=== PATIENT | female | born 1990 | race Caucasian/White ===

== ENCOUNTER 2019-10-08 08:13 | Emergency (ER) | payer BC, OTHER ==
[2019-10-08] MEDS ORDERED: Acetaminophen 325 MG Tab PO ONE (08:38)
--- NOTE | 2019-10-08 08:41 | EDM.PDOC ---
ED [facility] GENERAL MEDICAL PROBLEM - General Chief Complaint: Abdominal Pain Stated Complaint: LOWER ABDOMINAL PAIN Time Seen by Provider: 10/08/19 08:39 Source of Information: Reports: Patient, Old Records History Limitations: Reports: No Limitations - History of Present Illness INITIAL COMMENTS - FREE TEXT/NARRATIVE: Patient is a 29-year-old female presenting with a chief complaint of lower pelvic pain. Patient has history of ovarian cysts and irregular menstrual periods. Patient states that the pain started this morning and is located in the lower pelvis and is not localized to 1 side to the other. Pain is fluctuated in intensity since onset. Patient reports the nature of the pain is similar to period cramps. Patient took Motrin without any relief. Patient denies any associated fevers, chills, nausea, vomiting, dysuria, hematuria, vaginal bleeding, vaginal discharge. Patient's last menstrual period was at the end of July. Pmhx: Per HPI Pshx: Appendectomy Family Hx: noncontributory Smoking history? no Etoh use? none Drug use? none In addition to that documented in the HPI above, the additional ROS was obtained : Constitutional: Denies fevers or chills Eyes: Denies vision changes ENMT: Denies sore throat CV: Denies chest pain Resp: Denies SOB GI: Denies vomiting or diarrhea : Denies painful urination MSK: Denies recent trauma Skin: Denies new rashes Neuro: Denies new numbness or tingling or weakness Endocrine: Denies unexpected weight loss Heme: Denies bleeding disorders I have reviewed the triage vital signs Const: Well nourished, well developed, appears stated age Eyes: PERRL, no conjunctival injection HENT: NCAT, Neck supple without meningismus CV: RRR, Warm, well-perfused extremities RESP: Unlabored respiratory effort GI: Tenderness over the lower pelvis not focal. No guarding, soft, non-tender, non-distended, no masses MSK: No gross deformities appreciated Skin: Warm, dry. No rashes Neuro: Alert, personal lines advisor II-XII grossly intact. Sensation and motor function of extremities grossly intact. Psych: Appropriate mood and affect Assessment and plan: Patient is 29-year-old female presenting with lower pelvic pain. Patient's vital signs within normal limits on arrival to the ER. Patient's ER course was uncomplicated. Patient's pain control with Tylenol. Labs revealed elevated white blood cell count but no other significant abnormalities. Although ovarian torsion is low likelihood, an ultrasound was performed to examine the ovaries to rule out. Ultrasound did not find any acute abnormalities. Other differentials included urinary tract infection and . Urine tests are unremarkable. 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 The patient was given return precautions. All questions were addressed and answered. Patient agrees with plan. Lower Abdomen Pain Score (Numeric/FACES): 8 - Related Data Allergies Allergy/AdvReac Type Severity Reaction Status Date / Time No Known Allergies Allergy Verified 09/01/15 13:48 [facility] Home Meds: Home Meds No122/Iron/Folic Acid [ Multi Tablet] 1 each PO DAILY 09/01/15 [History] Acetaminophen/oxyCODONE [Percocet 325-5 MG] 2 tab PO Q4H PRN tablet 05/22/17 [ Rx] Docusate Sodium [Colace] 100 mg PO Q12H PRN cap 05/22/17 [Rx] Ibuprofen [IJD: Ibuprofen] 600 mg PO Q4H PRN #30 tablet 05/22/17 [Rx] Past Medical History - Past Health History Medical/Surgical History: Denies Medical/Surgical History Other HEENT History: wears glasses 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) Gastrointestinal History: Reports: Other (See Below) 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 HAND History: Reports: Dysfunctional Uterine Bleeding - Past Surgical History GI Surgical History: Reports: Appendectomy Social & Family History - Family History Family Medical History: Noncontributory ED ROS GENERAL - Review of Systems Review Of Systems: See Below ED EXAM, RENAL/ - Physical Exam Exam: See Below Course - Vital Signs Last Recorded V/S: Last Vital Signs Temp 36.7 C 10/08/19 08:30 Pulse 77 10/08/19 10:06 Resp 16 10/08/19 10:06 BP 95/60 10/08/19 10:06 Pulse Ox 99 10/08/19 10:06 - Orders/Labs/Meds Labs: Laboratory Tests 10/08/19 10/08/19 10/08/19 Range/Units 08:45 08:45 08:45 WBC 15.01 H (4.0-11.0) K/uL RBC 4.60 (4.30-5.90) M/uL Hgb 14.1 (12.0-16.0) g/dL Hct 41.6 (36.0-46.0) % MCV 90.4 (80.0-98.0) fL MCH 30.7 (27.0-32.0) pg MCHC 33.9 (31.0-37.0) g/dL RDW Std Deviation 39.2 (28.0-62.0) fl RDW Coeff of Diya 12 (11.0-15.0) % Plt Count 201 (150-400) K/uL MPV 10.00 (7.40-12.00) fL Neut % (Auto) 82.5 H (48.0-80.0) % Lymph % (Auto) 10.7 L (16.0-40.0) % Slope % (Auto) 5.7 (0.0-15.0) % Eos % (Auto) 0.8 (0.0-7.0) % Baso % (Auto) 0.3 (0.0-1.5) % Neut # (Auto) 12.4 H (1.4-5.7) K/uL Lymph # (Auto) 1.6 (0.6-2.4) K/uL Slope # (Auto) 0.9 H (0.0-0.8) K/uL Eos # (Auto) 0.1 (0.0-0.7) K/uL Baso # (Auto) 0.0 (0.0-0.1) K/uL Nucleated RBC % 0.0 /100WBC Nucleated RBCs # 0 K/uL Sodium (136-145) mmol/L Potassium (3.5-5.1) mmol/L Chloride (98-107) mmol/L Carbon Dioxide (21.0-32.0) mmol/L BUN (7.0-18.0) mg/dL Creatinine (0.6-1.0) mg/dL Est Cr Clr Drug Dosing Estimated GFR (MDRD) ml/min Glucose (74-106) mg/dL Calcium (8.5-10.1) mg/dL Urine Color YELLOW Urine Appearance CLEAR Urine pH 6.0 (5.0-8.0) Ur Specific [place] >= 1.030 (1.001-1.035) Urine Protein NEGATIVE (NEGATIVE) mg/dL Urine Glucose (UA) NEGATIVE (NEGATIVE) mg/dL Urine Ketones NEGATIVE (NEGATIVE) mg/dL Urine Occult Blood NEGATIVE (NEGATIVE) Urine Nitrite NEGATIVE (NEGATIVE) Urine Bilirubin NEGATIVE (NEGATIVE) Urine Urobilinogen 0.2 (<2.0) EU/dL Ur Leukocyte Esterase NEGATIVE (NEGATIVE) Urine HCG, Qual NEGATIVE (NEGATIVE) 10/08/19 Range/Units 08:45 WBC (4.0-11.0) K/uL RBC (4.30-5.90) M/uL Hgb (12.0-16.0) g/dL Hct (36.0-46.0) % MCV (80.0-98.0) fL MCH (27.0-32.0) pg MCHC (31.0-37.0) g/dL RDW Std Deviation (28.0-62.0) fl RDW Coeff of Diya (11.0-15.0) % Plt Count (150-400) K/uL MPV (7.40-12.00) fL Neut % (Auto) (48.0-80.0) % Lymph % (Auto) (16.0-40.0) % Slope % (Auto) (0.0-15.0) % Eos % (Auto) (0.0-7.0) % Baso % (Auto) (0.0-1.5) % Neut # (Auto) (1.4-5.7) K/uL Lymph # (Auto) (0.6-2.4) K/uL Slope # (Auto) (0.0-0.8) K/uL Eos # (Auto) (0.0-0.7) K/uL Baso # (Auto) (0.0-0.1) K/uL Nucleated RBC % /100WBC Nucleated RBCs # K/uL Sodium 141 (136-145) mmol/L Potassium 3.8 (3.5-5.1) mmol/L Chloride 104 (98-107) mmol/L Carbon Dioxide 28.8 (21.0-32.0) mmol/L BUN 13 (7.0-18.0) mg/dL Creatinine 0.8 (0.6-1.0) mg/dL Est Cr Clr Drug Dosing TNP Estimated GFR (MDRD) > 60.0 ml/min Glucose 92 (74-106) mg/dL Calcium 8.4 L (8.5-10.1) mg/dL Urine Color Urine Appearance Urine pH (5.0-8.0) Ur Specific [place] (1.001-1.035) Urine Protein (NEGATIVE) mg/dL Urine Glucose (UA) (NEGATIVE) mg/dL Urine Ketones (NEGATIVE) mg/dL Urine Occult Blood (NEGATIVE) Urine Nitrite (NEGATIVE) Urine Bilirubin (NEGATIVE) Urine Urobilinogen (<2.0) EU/dL Ur Leukocyte Esterase (NEGATIVE) Urine HCG, Qual (NEGATIVE) Meds: Medications Discontinued Medications Generic Name Dose Route Start Last Admin Trade Name Freq PRN Reason Stop Dose Admin Acetaminophen 650 mg 10/08/19 08:38 10/08/19 08:48 Tylenol PO 10/08/19 08:39 650 mg NOW ONE Administration Departure - Departure Time of Disposition: 10:10 Disposition: Home, Self-Care 01 Clinical Impression: Pelvic pain - Discharge Information Instructions: Pelvic Pain, Female Referrals: PCP,None [Primary Care Provider] - Forms: ED Department Discharge Additional Instructions: The following information is given to patients seen in the emergency department who are being discharged to home. This information is to outline your options for follow-up care. We provide all patients seen in our emergency department with a follow-up referral. The need for follow-up, as well as the timing and circumstances, are variable depending upon the specifics of your emergency department visit. If you don't have a primary care physician on staff, we will provide you with a referral. We always advise you to contact your personal physician following an emergency department visit to inform them of the circumstance of the visit and for follow-up with them and/or the need for any referrals to a consulting specialist. The emergency department will also refer you to a specialist when appropriate. This referral assures that you have the opportunity for follow-up care with a specialist. All of these measure are taken in an effort to provide you with optimal care, which includes your follow-up. Under all circumstances we always encourage you to contact your private physician who remains a resource for coordinating your care. When calling for follow-up care, please make the office aware that this follow-up is from your recent emergency room visit. If for any reason you are refused follow-up, please contact the [facility] Emergency Department at and asked to speak to the emergency department charge nurse. Use Tylenol and Motrin today for pain control. If pain gets significantly worse or you start having vomiting, return to the ER. Sepsis Event Note - Evaluation Sepsis Screening Result: No Definite Risk - Focused Exam Vital Signs: Vital Signs Temp Pulse Resp BP Pulse Ox 10/08/19 10:06 77 16 95/60 99 10/08/19 08:30 36.7 C 72 14 103/66 98 Date Exam was Performed: 10/08/19 Time Exam was Performed: 10:10
[2019-10-08 09:12] LABS: BLOOD UREA NITROGEN,BUN 13 mg/dL (7.0-18.0); CARBON DIOXIDE,CO2 28.8 mmol/L (21.0-32.0); CHLORIDE,CL 104 mmol/L (98-107); GLUCOSE RANDOM 92 mg/dL (74-106); POTASSIUM,K 3.8 mmol/L (3.5-5.1); SODIUM,NA 141 mmol/L (136-145)
--- NOTE | 2019-10-08 10:02 | US ---
Pelvic ultrasound: Multiple real-time images were obtained transabdominally and transvaginally. Uterus is anteverted. No myometrial abnormality is seen. Endometrial thickness is normal at 6 mm. Follicles are seen within both ovaries. No larger cyst or solid abnormality is seen within either ovary. No free fluid is seen. Measurements: Uterus: Length 6.7 cm, AP height 4.2 cm, transverse with 5.0 cm Right ovary: 3.2 x 3.1 x 2.2 cm Left ovary: 3.9 x 3.5 x 2.5 cm Impression: 1. No abnormality is identified on pelvic ultrasound study. Diagnostic code #1 This report was dictated in MDT
[2019-10-08 10:06] VITALS: BP 95/60; PULSE 77
== END 2019-10-08 10:15 | disposition home or self-care (01) ==
LOC: MW.ED 08:13
DX: R10.2 Pelvic and perineal pain (principal); Z90.49 Acquired absence of other specified parts of digestive tract
CPT/HCPCS: 36415; 76856; 80048; 81003; 81025; 85025; 99284; A9270; 99283

== ENCOUNTER 2021-02-08 09:50 | Inpatient (IN) | payer OTHER ==
[2021-02-08] MEDS ORDERED: NIFEdipine 30 MG Tab.ER PO ONE (11:00)
[2021-02-08] MEDS ORDERED: NIFEdipine 10 MG Cap ONE (11:12)
[2021-02-08] MEDS ORDERED: Lactated Ringers 1,000 ML IV SCH ×2 (11:15→16:00)
[2021-02-08] MEDS ORDERED: Butorphanol 1 MG/ML SDV IM ONE (15:24)
[2021-02-08] MEDS ORDERED: Sodium Chloride 0.9% 2.5 ML Syringe FLUSH PRN (15:47)
[2021-02-08] MEDS ORDERED: Sodium Chloride 0.9% 10 ML SDV IV PRN (15:47)
[2021-02-08] MEDS ORDERED: Sodium Chloride 0.9% 10 ML Syringe FLUSH PRN (15:47)
[2021-02-08] MEDS ORDERED: ceFAZolin 2 GM in Premix Bag 1 BAG IV ONE (15:47)
--- NOTE | 2021-02-08 15:58 | PCM.LDHP ---
L&D History of Present Illness - General Date of Service: 02/08/21 Admit Problem/Dx: Patient Status Order with Admit Dx/Problem 02/08/21 13:51 Patient Status [ADT] Routine 02/08/21 15:47 Patient Status [ADT] Routine Admission Diagnosis/Problem Admission Diagnosis/Problem 02/08/21 15:53 presenting to L&D with complaints of painful, regular uterine contractions approximately 4-7 minutes apart. She is 35 3/7 weeks today (BRENNA: 03/12/21 by early ultrasound). After several hours of observation, she progressed to 4-5cm/70%/-2. O+, Rubella immune, GBS unknown. Her last delivery was a haydee arean due to breech presentation. MFM predicted chance of success: 91.5%; patient has elected to have repeat delivery. Uneventful course thus far. Source of Information: Patient History Limitations: Reports: No Limitations - Related Data Allergies/Adverse Reactions: Allergies Allergy/AdvReac Type Severity Reaction Status Date / Time No Known Allergies Allergy Verified 02/08/21 10:09 Home Medications: Home Meds No122/Iron/Folic Acid [ Multi Tablet] 1 each PO DAILY 09/01/15 [History] Past Medical History - Past Health History Medical/Surgical History: Denies Medical/Surgical History Other HEENT History: wears glasses Cardiovascular History: Reports: None Respiratory History: Reports: Asthma, Other (See Below) Other Respiratory History: sports induced asthma, do not use inhaler Gastrointestinal History: Reports: Other (See Below) Genitourinary History: Reports: None 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 OB/BYN History: hx of cesareran section, 2017 Musculoskeletal History: Reports: None Neurological History: Reports: None Psychiatric History: Reports: None Endocrine/Metabolic History: Reports: None Hematologic History: Reports: None Immunologic History: Reports: None Oncologic (Cancer) History: Reports: None Dermatologic History: Reports: None - Infectious Disease History Infectious Disease History: Reports: None - Past Surgical History Head Surgeries/Procedures: Reports: None GI Surgical History: Reports: Appendectomy Female Surgical History: Reports: None Social & Family History - Family History Family Medical History: No Pertinent Family History - Tobacco Use Tobacco Use Status *Q: Never Tobacco User Second Hand Smoke Exposure: No - Caffeine Use Caffeine Use: Reports: Coffee Other Caffeine Use: 1 cup of coffee every 3 days - Recreational Drug Use Recreational Drug Use: No H&P Review of Systems - Review of Systems: Review Of Systems: See Below General: Reports: No Symptoms HEENT: Reports: No Symptoms Pulmonary: Reports: No Symptoms Cardiovascular: Reports: No Symptoms Gastrointestinal: Reports: No Symptoms Genitourinary: Reports: No Symptoms Musculoskeletal: Reports: No Symptoms Skin: Reports: No Symptoms Psychiatric: Reports: No Symptoms Neurological: Reports: No Symptoms Hematologic/Lymphatic: Reports: No Symptoms Immunologic: Reports: No Symptoms L&D Exam - Exam Exam: See Below - Vital Signs Vital Signs: Last Vital Signs Temp Pulse Resp BP 108/71 02/08/21 11:15 Pulse Ox Weight: 155 lb - OB Specific Contraction Intensity: Moderate Movement: Active Heart Tones: Present Heart Rate (FHR) Variability: Moderate (6-25 bpm) Presentation: Vertex - Holm Score Holm Score Cervix Position: Midposition Holm Score Consistency: Soft Holm Score Effacement: 51-70% Holm Score Dilation: 3-4 cm Holm Score Infant's Station: -2 Holm Score Total: 8 - Exam General: Alert, Oriented, Cooperative Lungs: Normal Respiratory Effort Cardiovascular: Regular Rate, Regular Rhythm GI/Abdominal Exam: Soft, Non-Tender Rectal Exam: Deferred Genitourinary: Deferred Back Exam: Normal Inspection, Full Range of Motion Extremities: Normal Inspection, Normal Range of Motion, Non-Tender, Normal Capillary Refill Skin: Warm, Dry, Intact Neurological: Strength Equal Bilateral, Normal Speech, Normal Tone, Sensation Intact Psychiatric: Alert, Normal Affect, Normal Mood - Patient Data Lab Results Last 24 hrs: Laboratory Results - last 24 hr 02/08/21 02/08/21 Range/Units 10:37 10:40 Urine Color YELLOW Urine Appearance CLEAR Urine pH 8.0 (5.0-8.0) Ur Specific [place] 1.015 (1.001-1.035) Urine Protein NEGATIVE (NEGATIVE) mg/dL Urine Glucose (UA) NEGATIVE (NEGATIVE) mg/dL Urine Ketones NEGATIVE (NEGATIVE) mg/dL Urine Occult Blood NEGATIVE (NEGATIVE) Urine Nitrite NEGATIVE (NEGATIVE) Urine Bilirubin NEGATIVE (NEGATIVE) Urine Urobilinogen 0.2 (<2.0) EU/dL Ur Leukocyte Esterase TRACE H (NEGATIVE) Awa species DNA POSITIVE H (NEGATIVE) Gardnerella DNA Probe NEGATIVE (NEGATIVE) Trichomonas DNA Probe NEGATIVE (NEGATIVE) - Problem List (1) Supervision of normal IUP (intrauterine ) in multigravida SNOMED Code(s): 785468544, 146329621, 446530913 ICD Code: Z34.80 - ENCOUNTER FOR SUPRVSN OF NORMAL , UNSP TRIMESTER Status: Acute Priority: High Current Visit: Yes Qualifiers: Trimester: third trimester Qualified Code(s): Z34.83 - Encounter for supervision of other normal , third trimester (2) labor in third trimester SNOMED Code(s): 1191383 ICD Code: O60.03 - LABOR WITHOUT DELIVERY, THIRD TRIMESTER Status: Acute Priority: High Current Visit: Yes Problem List Initiated/Reviewed/Updated: Yes Orders Last 24hrs: Active Orders 24 hr Category Date Time Status Patient Status [ADT] Routine ADT 02/08/21 13:51 Active Patient Status [ADT] Routine ADT 02/08/21 15:47 Active Non Stress Test [RC] PER UNIT ROUTINE Care 02/08/21 10:15 Active Notify Provider Vital Signs [RC] PRN Care 02/08/21 15:49 Active Procedure Site Prep Instruct [RC] ASDIRECTED Care 02/08/21 15:47 Active Up ad Humera [RC] ASDIRECTED Care 02/08/21 10:15 Active Up ad Humera [RC] ASDIRECTED Care 02/08/21 15:47 Active Vaginal Exam [RC] Click to Edit Care 02/08/21 10:15 Active Verify Patient Consent Obtain [RC] ASDIRECTED Care 02/08/21 15:47 Active Vital Signs [RC] PER UNIT ROUTINE Care 02/08/21 10:15 Active Vital Signs [RC] PER UNIT ROUTINE Care 02/08/21 15:47 Active CBC W/O DIFF,HEMOGRAM [HEME] Routine Lab 02/08/21 15:47 Ordered GROUP B STREP BY PCR [MOLEC] Routine Lab 02/08/21 10:38 Received RPR (SYPHILIS SERO) W/ RFLX [REF] Routine Lab 02/08/21 15:47 Ordered TYPE AND SCREEN [BBK] Routine Lab 02/08/21 15:47 Ordered Butorphanol [Stadol] Med 02/08/21 15:24 Once 1 mg IM ONETIME ONE Lactated Ringers [Ringers, Lactated] 1,000 ml Med 02/08/21 11:15 Active IV ASDIRECTED Lactated Ringers [Ringers, Lactated] 1,000 ml Med 02/08/21 16:00 Ordered IV BOLUS Oxytocin/0.9 % Sodium Chloride [Oxytocin 30 Unit/500 ML Med 02/08/21 16:00 Ordered -NS] 30 unit in 500 ml IV TITRATE Sodium Chloride 0.9% [Normal Saline] Med 02/08/21 15:47 Ordered 10 ml IV ASDIRECTED PRN Sodium Chloride 0.9% [Saline Flush] Med 02/08/21 15:47 Ordered 10 ml FLUSH ASDIRECTED PRN Sodium Chloride 0.9% [Saline Flush] Med 02/08/21 15:47 Ordered 2.5 ml FLUSH ASDIRECTED PRN ceFAZolin [Ancef 2 GM/50 ML] 2 gm Med 02/08/21 15:47 Ordered Premix Bag 1 bag IV ONETIME Peripheral IV Insertion Adult [OM.PC] Routine Oth 02/08/21 15:47 Ordered Schedule Procedure [COMM] Per Unit Routine Oth 02/08/21 15:47 Ordered Resuscitation Status Routine Resus Stat 02/08/21 10:15 Ordered Medication Orders Butorphanol Tartrate (Butorphanol 1 Mg/Ml Sdv) 1 mg IM ONETIME ONE Stop: 02/08/21 15:25 Lactated Ringer's (Ringers, Lactated) 1,000 mls @ 999 mls/hr IV ASDIRECTED LIAT Last Admin: 02/08/21 11:00 Dose: 999 mls/hr Documented by: [id number] Lactated Ringer's (Ringers, Lactated) 1,000 mls @ 500 mls/hr IV BOLUS [facility] Oxytocin/Sodium Chloride (Oxytocin 30 Unit/500 Ml-Ns) 30 unit in 500 mls @ 250 mls/hr IV TITRATE LIAT Cefazolin Sodium/Dextrose 2 gm (/ Premix) 50 mls @ 100 mls/hr IV ONETIME ONE Stop: 02/08/21 16:16 Sodium Chloride (Sodium Chloride 0.9% 10 Ml Syringe) 10 ml FLUSH ASDIRECTED PRN PRN Reason: Keep Vein Open Sodium Chloride (Sodium Chloride 0.9% 2.5 Ml Syringe) 2.5 ml FLUSH ASDIRECTED PRN PRN Reason: Keep Vein Open Sodium Chloride (Sodium Chloride 0.9% 10 Ml Sdv) 10 ml IV ASDIRECTED PRN PRN Reason: IV Use Assessment/Plan Comment:: Admit A: presenting to L&D with complaints of painful, regular uterine contractions approximately 4-7 minutes apart. She is 35 3/7 weeks today (BRENNA: 03/12/21 by early ultrasound). After several hours of observation, she progressed to 4-5cm/70%/-2. O+, Rubella immune, GBS unknown. Her last delivery was a due to breech presentation. MFM predicted chance of success: 91.5%; patient has elected to have repeat delivery. Uneventful course thus far. P: Repeat delivery by Dr. Bee.
[2021-02-08] MEDS ORDERED: Morphine PF 10 MG/10 ML SDV ONE (16:00)
[2021-02-08] MEDS ORDERED: Oxytocin/0.9 % Sodium Chloride 30 UNIT/500 ML BAG IV SCH (16:00)
[2021-02-08] MEDS ORDERED: fentaNYL 100 MCG/2 ML SDV ONE (16:00)
[2021-02-08] MEDS ORDERED: Octyl 2-Cyanoacrylate 1 Tube ONE (16:25)
--- NOTE | 2021-02-08 16:26 | PCM.PREANE ---
Preanesthetic Assessment - Anesthesia/Transfusion/Family Hx Anesthesia History: Prior Anesthesia Without Reaction Family History of Anesthesia Reaction: No Transfusion History: No Prior Transfusion(s) Intubation History: Unknown - Review of Systems General: No Symptoms Pulmonary: No Symptoms Cardiovascular: No Symptoms Gastrointestinal: No Symptoms Neurological: No Symptoms Other: Reports: None - Physical Assessment NPO Status Date: 02/08/21 NPO Status Time: 06:00 Vital Signs: Last Vital Signs Temp Pulse Resp BP 108/71 02/08/21 11:15 Pulse Ox Height: 5 ft 5 in Weight: 155 lb ASA Class: 2 Mental Status: Alert & Oriented x3 Airway Class: Mallampati = 3 Dentition: Reports: Normal Dentition ROM/Head Extension: Full Lungs: Clear to Auscultation, Normal Respiratory Effort Cardiovascular: Regular Rate, Regular Rhythm - Lab Values: Laboratory Last Values Urine Color YELLOW 02/08/21 10:40 Urine Appearance CLEAR 02/08/21 10:40 Urine pH 8.0 (5.0-8.0) 02/08/21 10:40 Ur Specific [place] 1.015 (1.001-1.035) 02/08/21 10:40 Urine Protein NEGATIVE mg/dL (NEGATIVE) 02/08/21 10:40 Urine Glucose (UA) NEGATIVE mg/dL (NEGATIVE) 02/08/21 10:40 Urine Ketones NEGATIVE mg/dL (NEGATIVE) 02/08/21 10:40 Urine Occult Blood NEGATIVE (NEGATIVE) 02/08/21 10:40 Urine Nitrite NEGATIVE (NEGATIVE) 02/08/21 10:40 Urine Bilirubin NEGATIVE (NEGATIVE) 02/08/21 10:40 Urine Urobilinogen 0.2 EU/dL (<2.0) 02/08/21 10:40 Ur Leukocyte Esterase TRACE (NEGATIVE) H 02/08/21 10:40 Awa species DNA POSITIVE (NEGATIVE) H 02/08/21 10:37 Gardnerella DNA Probe NEGATIVE (NEGATIVE) 02/08/21 10:37 Trichomonas DNA Probe NEGATIVE (NEGATIVE) 02/08/21 10:37 - Allergies Allergies/Adverse Reactions: Allergies Allergy/AdvReac Type Severity Reaction Status Date / Time No Known Allergies Allergy Verified 02/08/21 10:09 - Blood Blood Available: Yes Product(s) Available: PRBC - Anesthesia Plan Pre-Op Medication Ordered: None - Acknowledgements Anesthesia Type Planned: Spinal Pt an Appropriate Candidate for the Planned Anesthesia: Yes Alternatives and Risks of Anesthesia Discussed w Pt/Guardian: Yes Pt/Guardian Understands and Agrees with Anesthesia Plan: Yes PreAnesthesia Questionnaire - Past Health History Medical/Surgical History: Denies Medical/Surgical History Other HEENT History: wears glasses Cardiovascular History: Reports: None Respiratory History: Reports: Asthma, Other (See Below) Other Respiratory History: sports induced asthma, do not use inhaler Gastrointestinal History: Reports: Other (See Below) Genitourinary History: Reports: 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 History: hx of cesareran section, 2017 Musculoskeletal History: Reports: None Neurological History: Reports: None Psychiatric History: Reports: None Endocrine/Metabolic History: Reports: None Hematologic History: Reports: None Immunologic History: Reports: None Oncologic (Cancer) History: Reports: None Dermatologic History: Reports: None - Infectious Disease History Infectious Disease History: Reports: None - Past Surgical History Head Surgeries/Procedures: Reports: None GI Surgical History: Reports: Appendectomy Female Surgical History: Reports: None - SUBSTANCE USE Tobacco Use Status *Q: Never Tobacco User Second Hand Smoke Exposure: No Recreational Drug Use History: No - HOME MEDS Home Medications: Home Meds No122/Iron/Folic Acid [ Multi Tablet] 1 each PO DAILY 09/01/15 [History] - CURRENT (IN HOUSE) MEDS Current Meds: Current Medications Lactated Ringer's (Ringers, Lactated) 1,000 mls @ 999 mls/hr IV ASDIRECTED LIAT Last Admin: 02/08/21 11:00 Dose: 999 mls/hr Documented by: Lactated Ringer's (Ringers, Lactated) 1,000 mls @ 500 mls/hr IV BOLUS LIAT Oxytocin/Sodium Chloride (Oxytocin 30 Unit/500 Ml-Ns) 30 unit in 500 mls @ 250 mls/hr IV TITRATE LIAT Sodium Chloride (Sodium Chloride 0.9% 10 Ml Syringe) 10 ml FLUSH ASDIRECTED PRN PRN Reason: Keep Vein Open Sodium Chloride (Sodium Chloride 0.9% 2.5 Ml Syringe) 2.5 ml FLUSH ASDIRECTED PRN PRN Reason: Keep Vein Open Sodium Chloride (Sodium Chloride 0.9% 10 Ml Sdv) 10 ml IV ASDIRECTED PRN PRN Reason: IV Use Discontinued Medications Butorphanol Tartrate (Butorphanol 1 Mg/Ml Sdv) 1 mg IM ONETIME ONE Stop: 02/08/21 15:25 Fentanyl (Fentanyl 100 Mcg/2 Ml Sdv) Confirm Administered Dose 100 mcg .ROUTE .STK-MED ONE Stop: 02/08/21 16:01 Cefazolin Sodium/Dextrose 2 gm (/ Premix) 50 mls @ 100 mls/hr IV ONETIME ONE Stop: 02/08/21 16:16 Morphine Sulfate (Morphine Pf 10 Mg/10 Ml Sdv) Confirm Administered Dose 10 mg .ROUTE .STK-MED ONE Stop: 02/08/21 16:01 Nifedipine (Nifedipine 30 Mg Tab.Er) 30 mg PO ONETIME ONE Stop: 02/08/21 11:01 Nifedipine (Nifedipine 10 Mg Cap) Confirm Administered Dose 30 mg .ROUTE .STK- MED ONE Stop: 02/08/21 11:13 Last Admin: 02/08/21 11:15 Dose: 30 mg Documented by:
[2021-02-08] MEDS ORDERED: Ketorolac 30 MG/ML SDV ONE (16:56)
[2021-02-08] MEDS ORDERED: Oxytocin 10 Units/1 ML SDV ONE (16:56)
[2021-02-08] MEDS ORDERED: Ondansetron 4 MG/2 ML SDV ONE (16:56)
[2021-02-08] MEDS ORDERED: Acetaminophen/oxyCODONE 325-5 MG Tab PO PRN ×2 (17:17)
[2021-02-08] MEDS ORDERED: Methylergonovine 0.2 MG/1 ML Amp IM PRN (17:17)
[2021-02-08] MEDS ORDERED: Oxytocin 10 Units/1 ML SDV IM PRN (17:17)
[2021-02-08] MEDS ORDERED: Bisacodyl 10 MG Supp RECTAL PRN (17:17)
[2021-02-08] MEDS ORDERED: Ondansetron 4 MG/2 ML SDV IVPUSH PRN (17:17)
[2021-02-08] MEDS ORDERED: Lanolin 100% Cream 7 GM Tube TOP PRN (17:17)
[2021-02-08] MEDS ORDERED: Tranexamic Acid 1,000 MG in Sodium Chloride 0.9% 100 ML IV PRN (17:17)
[2021-02-08] MEDS ORDERED: diphenhydrAMINE 50 MG/ML SDV IVPUSH PRN (17:17)
[2021-02-08] MEDS ORDERED: Misoprostol 200 MCG Tab RECTAL PRN (17:17)
--- NOTE | 2021-02-08 17:21 | PCM.OPNOTE ---
- General Post-Op/Procedure Note Date of Surgery/Procedure: 02/08/21 Operative Procedure(s): Repeat C/section. Pre Op Diagnosis: IUP35+4 previous C/section in labor. Post-Op Diagnosis: Same Anesthesia Technique: Spinal Primary Surgeon: Austin Bee Wastewater Technician: Alice Renteria EBL in mLs: 500 Complications: None Condition: Good
[2021-02-08] MEDS: Lactated Ringers 1,000 ML IV SCH ×2 (17:56→22:25)
[2021-02-08] MEDS: Docusate Sodium 100 MG Cap PO SCH (22:25)
[2021-02-08] MEDS: Ketorolac 30 MG/ML SDV IVPUSH SCH (23:18)
[2021-02-09] MEDS: Ketorolac 30 MG/ML SDV IVPUSH SCH ×3 (05:06→17:14)
--- NOTE | 2021-02-09 08:19 | PCM.PNPP ---
- General Info Date of Service: 02/09/21 Functional Status: Reports: Pain Controlled - Review of Systems General: Reports: No Symptoms HEENT: Reports: No Symptoms Pulmonary: Reports: No Symptoms Cardiovascular: Reports: No Symptoms Gastrointestinal: Reports: No Symptoms Genitourinary: Reports: No Symptoms Musculoskeletal: Reports: No Symptoms Skin: Reports: No Symptoms Neurological: Reports: No Symptoms Psychiatric: Reports: No Symptoms - General Info Date of Service: 02/09/21 - Patient Data Vital Signs - Most Recent: Last Vital Signs Temp 98.3 F 02/09/21 07:50 Pulse 64 02/09/21 07:50 Resp 18 02/09/21 07:50 BP 95/46 L 02/09/21 07:50 Pulse Ox 100 02/09/21 07:50 Weight - Most Recent: 155 lb I&O - Last 24 Hours: Intake & Output 02/08/21 02/09/21 02/09/21 22:59 06:59 14:59 Output Total 175 1400 Balance -175 -1400 Lab Results - Last 24 Hours: Laboratory Results - last 24 hr 02/08/21 02/08/21 02/08/21 Range/Units 10:37 10:40 15:56 WBC 13.67 H (4.0-11.0) K/uL RBC 3.83 L (4.30-5.90) M/uL Hgb 12.3 (12.0-16.0) g/dL Hct 35.8 L (36.0-46.0) % MCV 93.5 (80.0-98.0) fL MCH 32.1 H (27.0-32.0) pg MCHC 34.4 (31.0-37.0) g/dL RDW Std Deviation 46.8 (28.0-62.0) fl RDW Coeff of Diya 14 (11.0-15.0) % Plt Count 157 (150-400) K/uL MPV 10.40 (7.40-12.00) fL Nucleated RBC % 0.0 /100WBC Nucleated RBCs # 0 K/uL Urine Color YELLOW Urine Appearance CLEAR Urine pH 8.0 (5.0-8.0) Ur Specific [place] 1.015 (1.001-1.035) Urine Protein NEGATIVE (NEGATIVE) mg/dL Urine Glucose (UA) NEGATIVE (NEGATIVE) mg/dL Urine Ketones NEGATIVE (NEGATIVE) mg/dL Urine Occult Blood NEGATIVE (NEGATIVE) Urine Nitrite NEGATIVE (NEGATIVE) Urine Bilirubin NEGATIVE (NEGATIVE) Urine Urobilinogen 0.2 (<2.0) EU/dL Ur Leukocyte Esterase TRACE H (NEGATIVE) Awa species DNA POSITIVE H (NEGATIVE) Gardnerella DNA Probe NEGATIVE (NEGATIVE) Trichomonas DNA Probe NEGATIVE (NEGATIVE) Blood Type Antibody Screen 02/08/21 02/09/21 Range/Units 15:56 04:55 WBC (4.0-11.0) K/uL RBC (4.30-5.90) M/uL Hgb 12.0 (12.0-16.0) g/dL Hct 34.8 L (36.0-46.0) % MCV (80.0-98.0) fL MCH (27.0-32.0) pg MCHC (31.0-37.0) g/dL RDW Std Deviation (28.0-62.0) fl RDW Coeff of Diya (11.0-15.0) % Plt Count (150-400) K/uL MPV (7.40-12.00) fL Nucleated RBC % /100WBC Nucleated RBCs # K/uL Urine Color Urine Appearance Urine pH (5.0-8.0) Ur Specific [place] (1.001-1.035) Urine Protein (NEGATIVE) mg/dL Urine Glucose (UA) (NEGATIVE) mg/dL Urine Ketones (NEGATIVE) mg/dL Urine Occult Blood (NEGATIVE) Urine Nitrite (NEGATIVE) Urine Bilirubin (NEGATIVE) Urine Urobilinogen (<2.0) EU/dL Ur Leukocyte Esterase (NEGATIVE) Awa species DNA (NEGATIVE) Gardnerella DNA Probe (NEGATIVE) Trichomonas DNA Probe (NEGATIVE) Blood Type O POSITIVE Antibody Screen NEGATIVE Med Orders - Current: Current Medications Bisacodyl (Bisacodyl 10 Mg Supp) 10 mg RECTAL ONETIME PRN PRN Reason: Constipation Diphenhydramine HCl (Diphenhydramine 50 Mg/Ml Sdv) 25 mg IVPUSH Q6H PRN PRN Reason: Itching or Nausea Docusate Sodium (Docusate Sodium 100 Mg Cap) 100 mg PO BID LIAT Last Admin: 02/08/21 22:25 Dose: 100 mg Documented by: Emollient Ointment (Lanolin 100% Cream 7 Gm Tube) 0 gm TOP ASDIRECTED PRN PRN Reason: Sore Nipples Lactated Ringer's (Ringers, Lactated) 1,000 mls @ 999 mls/hr IV ASDIRECTED [facility] Last Admin: 02/08/21 11:00 Dose: 999 mls/hr Documented by: Lactated Ringer's (Ringers, Lactated) 1,000 mls @ 500 mls/hr IV BOLUS [facility] Oxytocin/Sodium Chloride (Oxytocin 30 Unit/500 Ml-Ns) 30 unit in 500 mls @ 250 mls/hr IV TITRATE [facility] Lactated Ringer's (Ringers, Lactated) 1,000 mls @ 125 mls/hr IV ASDIRECTED [facility] Last Admin: 02/08/21 22:25 Dose: 125 mls/hr Documented by: Tranexamic Acid 1,000 mg/ (Sodium Chloride) 110 mls @ 660 mls/hr IV ONETIME PRN PRN Reason: Bleeding Ibuprofen (Ibuprofen 800 Mg Tab) 800 mg PO Q8H PRN PRN Reason: mild pain or fever Ketorolac Tromethamine (Ketorolac 30 Mg/Ml Sdv) 30 mg IVPUSH Q6H [facility] Stop: 02/09/21 17:31 Last Admin: 02/09/21 05:06 Dose: 30 mg Documented by: Methylergonovine Maleate (Methylergonovine 0.2 Mg/1 Ml Amp) 0.2 mg IM ONETIME PRN PRN Reason: Excessive Vaginal Bleeding Misoprostol (Misoprostol 200 Mcg Tab) 1,000 mcg RECTAL ONETIME PRN PRN Reason: excessive bleeding Ondansetron HCl (Ondansetron 4 Mg/2 Ml Sdv) 4 mg IVPUSH Q4H PRN PRN Reason: Nausea/Vomiting Oxycodone/Acetaminophen (Acetaminophen/Oxycodone 325-5 Mg Tab) 1 tab PO Q4H PRN PRN Reason: Pain (severe 7-10) Oxycodone/Acetaminophen (Acetaminophen/Oxycodone 325-5 Mg Tab) 2 tab PO Q4H PRN PRN Reason: Pain (severe 7-10) Oxytocin (Oxytocin 10 Units/1 Ml Sdv) 10 unit IM ASDIRECTED PRN PRN Reason: Excessive Vaginal Bleeding Sodium Chloride (Sodium Chloride 0.9% 10 Ml Syringe) 10 ml FLUSH ASDIRECTED PRN PRN Reason: Keep Vein Open Sodium Chloride (Sodium Chloride 0.9% 2.5 Ml Syringe) 2.5 ml FLUSH ASDIRECTED PRN PRN Reason: Keep Vein Open Sodium Chloride (Sodium Chloride 0.9% 10 Ml Sdv) 10 ml IV ASDIRECTED PRN PRN Reason: IV Use Discontinued Medications Butorphanol Tartrate (Butorphanol 1 Mg/Ml Sdv) 1 mg IM ONETIME ONE Stop: 02/08/21 15:25 Fentanyl (Fentanyl 100 Mcg/2 Ml Sdv) Confirm Administered Dose 100 mcg .ROUTE .STK-MED ONE Stop: 02/08/21 16:01 Cefazolin Sodium/Dextrose 2 gm (/ Premix) 50 mls @ 100 mls/hr IV ONETIME ONE Stop: 02/08/21 16:16 Ketorolac Tromethamine (Ketorolac 30 Mg/Ml Sdv) Confirm Administered Dose 30 mg .ROUTE .STK-MED ONE Stop: 02/08/21 16:57 Miscellaneous Medication (Phenylephrine Hcl In 0.9% Nacl 1 Mg/10 Ml Syringe) Confirm Administered Dose 3 mg .ROUTE .STK-MED ONE Stop: 02/08/21 16:57 Morphine Sulfate (Morphine Pf 10 Mg/10 Ml Sdv) Confirm Administered Dose 10 mg .ROUTE .STK-MED ONE Stop: 02/08/21 16:01 Nifedipine (Nifedipine 30 Mg Tab.Er) 30 mg PO ONETIME ONE Stop: 02/08/21 11:01 Nifedipine (Nifedipine 10 Mg Cap) Confirm Administered Dose 30 mg .ROUTE .STK- MED ONE Stop: 02/08/21 11:13 Last Admin: 02/08/21 11:15 Dose: 30 mg Documented by: Octyl Cyanoacrylate (Octyl 2-Cyanoacrylate 1 Tube) Confirm Administered Dose 1 applic .ROUTE .STK-MED ONE Stop: 02/08/21 16:26 Ondansetron HCl (Ondansetron 4 Mg/2 Ml Sdv) Confirm Administered Dose 4 mg .ROUTE .STK-MED ONE Stop: 02/08/21 16:57 Oxytocin (Oxytocin 10 Units/1 Ml Sdv) Confirm Administered Dose 30 unit .ROUTE . STK-MED ONE Stop: 02/08/21 16:57 - Interaction Disposition, : [place] to Nursery Feeding: Bottle Fed Support Person: - Recovery Exam Fundal Tone: Firm Fundal Level: At Umbilicus Fundal Placement: Midline Lochia Amount: Scant Lochia Color: Rubra/Red Perineum Description: Intact, Minimal Bruising/Swelling Bladder Status: Indwelling Catheter in Place Urinary Elimination: Indwelling Catheter - Exam General: Alert, Oriented, Cooperative, No Acute Distress Lungs: Clear to Auscultation, Normal Respiratory Effort Cardiovascular: Regular Rate, Regular Rhythm GI/Abdominal Exam: Soft, Non-Tender Extremities: Normal Inspection, Normal Range of Motion, Non-Tender, Normal Capillary Refill Skin: Warm, Dry, Intact Wound/Incisions: Dressing Dry and Intact Neurological: No New Focal Deficit, Normal Speech, Normal Tone Psy/Mental Status: Alert, Normal Affect, Normal Mood - Problem List & Annotations (1) Supervision of normal IUP (intrauterine ) in multigravida SNOMED Code(s): 525617239, 675485215, 586294792 Code(s): Z34.80 - ENCOUNTER FOR SUPRVSN OF NORMAL , UNSP TRIMESTER Status: Acute Priority: High Current Visit: Yes Qualifiers: Trimester: third trimester Qualified Code(s): Z34.83 - Encounter for supervision of other normal , third trimester (2) labor in third trimester SNOMED Code(s): 9804616 Code(s): O60.03 - LABOR WITHOUT DELIVERY, THIRD TRIMESTER Status: Acute Priority: High Current Visit: Yes - Problem List Review Problem List Initiated/Reviewed/Updated: Yes - My Orders Last 24 Hours: My Active Orders 02/08/21 10:15 Up ad Humera [RC] ASDIRECTED Vital Signs [RC] Q1H Resuscitation Status Routine 02/08/21 10:38 GROUP B STREP BY PCR [MOLEC] Routine 02/08/21 11:15 Lactated Ringers [Ringers, Lactated] 1,000 ml IV ASDIRECTED - Plan Plan:: Admit A: presenting to L&D with complaints of painful, regular uterine contractions approximately 4-7 minutes apart. She is 35 3/7 weeks today (BRENNA: 03/12/21 by early ultrasound). After several hours of observation, she progressed to 4-5cm/70%/-2. O+, Rubella immune, GBS unknown. Her last d elivery was a due to breech presentation. MFM predicted chance of success: 91.5%; patient has elected to have repeat delivery. Uneventful course thus far. P: Repeat delivery by Dr. Bee. PP Day 1 A: Pain controlled. Dressing dry and intact. Baby to nursery at this time. Patient reports doing well; no complaints or concerns at this time. P: Routine plan of care. Dr. Bee updated.
[2021-02-09] MEDS: Docusate Sodium 100 MG Cap PO SCH ×2 (08:23→21:09)
--- NOTE | 2021-02-09 08:33 | OR ---
SURGEON: Austin Bee MD DATE OF PROCEDURE: 02/08/2021 PREOPERATIVE DIAGNOSES: Intrauterine 35+ 4, previous section, in active labor. POSTOPERATIVE DIAGNOSES: Intrauterine 35+ 4, previous section, in active labor. OPERATION PERFORMED: Repeat low transverse section. PRIMARY SURGEON: Austin Bee MD CEMETERY WARDEN: Alice Renteria, certified nurse wagon driller. BLEACHER SULFITE PULP: Dr. Suyapa Mcgee. ESTIMATED BLOOD LOSS: 500 mL. ANESTHESIA: Spinal, Shashi Varner. COMPLICATIONS: None. FINDINGS: Male fetus. scores reported to be 8 and 9 and the weight is 6, 11. INDICATIONS FOR SURGERY: This patient is followed in our practice. She had a previous section and previous vaginal . She is scheduled for elective repeat section 2 weeks from now. However, the patient presented to Labor and Delivery in active labor and she started dilating, so a decision is made to repeat her section. PROCEDURE IN DETAIL: The patient was brought to the OR, properly identified with a Medeiros catheter in the bladder, and after adequate level of spinal anesthesia, the patient was prepped and draped in sterile fashion as usual. Low transverse Pfannenstiel skin incision done. Mariela's fascia and rectus fascia were opened in direction of the incision. The 2 recti muscles were . Peritoneal cavity was entered. Bladder flap was raised in the usual manner pushing the bladder away from the lower uterine segment, and low transverse uterine incision was done, extended manually with hand. Fetus was in a vertex position, delivered without any problem, and handed to the resuscitating team. The placenta delivered spontaneous, complete, and intact. Repair of the lower uterine segment was done with 2-0 Vicryl continuous interlocking in 2 layers. Reperitonealization done with 3-0 Vicryl continuous, and the peritoneal cavity evacuated completely from all blood and blood clots and closed with 3-0 Vicryl continuous. The rectus fascia was closed with #1 PDS single strand continuous, Mariela's fascia with 3-0 Vicryl continuous, and skin closed with 3-0 in subcuticular fashion and Dermabond. Instrument and sponge count were correct. The patient tolerated the procedure well, went to recovery room in stable general condition. CUCA / MODL /[id number]
[2021-02-09] MEDS: Ibuprofen 800 MG Tab PO PRN (23:23)
[2021-02-10] MEDS: Ibuprofen 800 MG Tab PO PRN (07:21)
[2021-02-10 07:38] VITALS: BP 115/73; PULSE 73
--- NOTE | 2021-02-10 08:53 | PCM.SURGPN ---
- General Info Date of Service: 02/10/21 POD#: 2 Functional Status: Reports: Pain Controlled - Review of Systems General: Reports: No Symptoms HEENT: Reports: No Symptoms Pulmonary: Reports: No Symptoms Cardiovascular: Reports: No Symptoms Gastrointestinal: Reports: No Symptoms Genitourinary: Reports: No Symptoms Musculoskeletal: Reports: No Symptoms Skin: Reports: No Symptoms Neurological: Reports: No Symptoms Psychiatric: Reports: No Symptoms - Patient Data Vitals - Most Recent: Last Vital Signs Temp 36.6 C 02/10/21 07:35 Pulse 73 02/10/21 07:35 Resp 18 02/10/21 07:35 BP 115/73 02/10/21 07:35 Pulse Ox 98 02/10/21 07:35 Weight - Most Recent: 70.307 kg I&O - Last 24 Hours: Intake & Output 02/09/21 02/10/21 02/10/21 22:59 06:59 14:59 Output Total 500 Balance -500 Lab Results Last 24 Hrs: Laboratory Results - last 24 hr 02/08/21 Range/Units 10:38 Group B Strep (PCR) NEGATIVE (NEGATIVE) Med Orders - Current: Current Medications Bisacodyl (Bisacodyl 10 Mg Supp) 10 mg RECTAL ONETIME PRN PRN Reason: Constipation Diphenhydramine HCl (Diphenhydramine 50 Mg/Ml Sdv) 25 mg IVPUSH Q6H PRN PRN Reason: Itching or Nausea Last Admin: 02/09/21 08:23 Dose: 25 mg Documented by: Docusate Sodium (Docusate Sodium 100 Mg Cap) 100 mg PO BID [facility]AT Last Admin: 02/09/21 21:09 Dose: 100 mg Documented by: Emollient Ointment (Lanolin 100% Cream 7 Gm Tube) 0 gm TOP ASDIRECTED PRN PRN Reason: Sore Nipples Lactated Ringer's (Ringers, Lactated) 1,000 mls @ 999 mls/hr IV [facility]IRECTED [facility] Last Admin: 02/08/21 11:00 Dose: 999 mls/hr Documented by: Lactated Ringer's (Ringers, Lactated) 1,000 mls @ 500 mls/hr IV BOLUS [facility] Oxytocin/Sodium Chloride (Oxytocin 30 Unit/500 Ml-Ns) 30 unit in 500 mls @ 250 mls/hr IV TITRATE [facility] Lactated Ringer's (Ringers, Lactated) 1,000 mls @ 125 mls/hr IV ASDIRECTED [facility] Last Admin: 02/08/21 22:25 Dose: 125 mls/hr Documented by: Tranexamic Acid 1,000 mg/ (Sodium Chloride) 110 mls @ 660 mls/hr IV ONETIME PRN PRN Reason: Bleeding Ibuprofen (Ibuprofen 800 Mg Tab) 800 mg PO Q8H PRN PRN Reason: mild pain or fever Last Admin: 02/10/21 07:21 Dose: 800 mg Documented by: Methylergonovine Maleate (Methylergonovine 0.2 Mg/1 Ml Amp) 0.2 mg IM ONETIME PRN PRN Reason: Excessive Vaginal Bleeding Misoprostol (Misoprostol 200 Mcg Tab) 1,000 mcg RECTAL ONETIME PRN PRN Reason: excessive bleeding Ondansetron HCl (Ondansetron 4 Mg/2 Ml Sdv) 4 mg IVPUSH Q4H PRN PRN Reason: Nausea/Vomiting Oxycodone/Acetaminophen (Acetaminophen/Oxycodone 325-5 Mg Tab) 1 tab PO Q4H PRN PRN Reason: Pain (severe 7-10) Oxycodone/Acetaminophen (Acetaminophen/Oxycodone 325-5 Mg Tab) 2 tab PO Q4H PRN PRN Reason: Pain (severe 7-10) Oxytocin (Oxytocin 10 Units/1 Ml Sdv) 10 unit IM ASDIRECTED PRN PRN Reason: Excessive Vaginal Bleeding Sodium Chloride (Sodium Chloride 0.9% 10 Ml Syringe) 10 ml FLUSH ASDIRECTED PRN PRN Reason: Keep Vein Open Sodium Chloride (Sodium Chloride 0.9% 2.5 Ml Syringe) 2.5 ml FLUSH ASDIRECTED PRN PRN Reason: Keep Vein Open Sodium Chloride (Sodium Chloride 0.9% 10 Ml Sdv) 10 ml IV ASDIRECTED PRN PRN Reason: IV Use Discontinued Medications Butorphanol Tartrate (Butorphanol 1 Mg/Ml Sdv) 1 mg IM ONETIME ONE Stop: 02/08/21 15:25 Fentanyl (Fentanyl 100 Mcg/2 Ml Sdv) Confirm Administered Dose 100 mcg .ROUTE .STK-MED ONE Stop: 02/08/21 16:01 Cefazolin Sodium/Dextrose 2 gm (/ Premix) 50 mls @ 100 mls/hr IV ONETIME ONE Stop: 02/08/21 16:16 Ketorolac Tromethamine (Ketorolac 30 Mg/Ml Sdv) Confirm Administered Dose 30 mg .ROUTE .STK-MED ONE Stop: 02/08/21 16:57 Ketorolac Tromethamine (Ketorolac 30 Mg/Ml Sdv) 30 mg IVPUSH Q6H [facility] Stop: 02/09/21 17:31 Last Admin: 02/09/21 17:14 Dose: 30 mg Documented by: Miscellaneous Medication (Phenylephrine Hcl In 0.9% Nacl 1 Mg/10 Ml Syringe) Confirm Administered Dose 3 mg .ROUTE .STK-MED ONE Stop: 02/08/21 16:57 Morphine Sulfate (Morphine Pf 10 Mg/10 Ml Sdv) Confirm Administered Dose 10 mg .ROUTE .STK-MED ONE Stop: 02/08/21 16:01 Nifedipine (Nifedipine 30 Mg Tab.Er) 30 mg PO ONETIME ONE Stop: 02/08/21 11:01 Nifedipine (Nifedipine 10 Mg Cap) Confirm Administered Dose 30 mg .ROUTE .STK- MED ONE Stop: 02/08/21 11:13 Last Admin: 02/08/21 11:15 Dose: 30 mg Documented by: Octyl Cyanoacrylate (Octyl 2-Cyanoacrylate 1 Tube) Confirm Administered Dose 1 applic .ROUTE .STK-MED ONE Stop: 02/08/21 16:26 Ondansetron HCl (Ondansetron 4 Mg/2 Ml Sdv) Confirm Administered Dose 4 mg .ROUTE .STK-MED ONE Stop: 02/08/21 16:57 Oxytocin (Oxytocin 10 Units/1 Ml Sdv) Confirm Administered Dose 30 unit .ROUTE .STK-MED ONE Stop: 02/08/21 16:57 - Exam Wound/Incisions: Healing Well General: Alert, Oriented HEENT: Pupils Equal Neck: Supple Lungs: Clear to Auscultation, Normal Respiratory Effort Cardiovascular: Regular Rate, Regular Rhythm GI/Abdominal Exam: Normal Bowel Sounds, Soft, Non-Tender, No Organomegaly, No Distention, No Abnormal Bruit, No Mass, Pelvis Stable Extremities: Normal Inspection, Normal Range of Motion, Non-Tender, No Pedal Edema, Normal Capillary Refill Skin: Warm, Dry, Intact Neurological: No New Focal Deficit Psy/Mental Status: Alert, Normal Affect, Normal Mood Sepsis Event Note - Evaluation Sepsis Screening Result: No Definite Risk - Focused Exam Vital Signs: Vital Signs Temp Pulse Resp BP Pulse Ox 02/10/21 07:35 36.6 C 73 18 115/73 98 02/10/21 04:00 35.8 C L 68 16 111/66 96 02/10/21 00:00 37.1 C 69 18 114/56 L 95 - Problem List Review Problem List Initiated/Reviewed/Updated: Yes - My Orders Last 24 Hours: Active Orders 24 hr Category Date Time Status Ibuprofen [Motrin] Med 02/09/21 23:30 Active 800 mg PO Q8H PRN Medication Orders Bisacodyl (Bisacodyl 10 Mg Supp) 10 mg RECTAL ONETIME PRN PRN Reason: Constipation Diphenhydramine HCl (Diphenhydramine 50 Mg/Ml Sdv) 25 mg IVPUSH Q6H PRN PRN Reason: Itching or Nausea Last Admin: 02/09/21 08:23 Dose: 25 mg Documented by: MEDHAT Docusate Sodium (Docusate Sodium 100 Mg Cap) 100 mg PO BID [facility] Last Admin: 02/09/21 21:09 Dose: 100 mg Documented by: Admin: 02/09/21 08:23 Dose: 100 mg Documented by: Admin: 02/08/21 22:25 Dose: 100 mg Documented by: TERESSA Emollient Ointment (Lanolin 100% Cream 7 Gm Tube) 0 gm TOP ASDIRECTED PRN PRN Reason: Sore Nipples Lactated Ringer's (Ringers, Lactated) 1,000 mls @ 999 mls/hr IV ASDIRECTED [facility] Last Admin: 02/08/21 11:00 Dose: 999 mls/hr Documented by: JUDY Lactated Ringer's (Ringers, Lactated) 1,000 mls @ 500 mls/hr IV BOLUS [facility] Oxytocin/Sodium Chloride (Oxytocin 30 Unit/500 Ml-Ns) 30 unit in 500 mls @ 250 mls/hr IV TITRATE [facility] Lactated Ringer's (Ringers, Lactated) 1,000 mls @ 125 mls/hr IV ASDIRECTED [facility] Last Admin: 02/08/21 22:25 Dose: 125 mls/hr Documented by: Infusion: 02/08/21 22:25 Dose: 125 mls/hr Documented by: Infusion: 02/08/21 18:30 Dose: 125 mls/hr Documented by: Infusion: 02/08/21 18:06 Dose: 999 mls/hr Documented by: Admin: 02/08/21 17:56 Dose: 125 mls/hr Documented by: TEDDY Tranexamic Acid 1,000 mg/ (Sodium Chloride) 110 mls @ 660 mls/hr IV ONETIME PRN PRN Reason: Bleeding Ibuprofen (Ibuprofen 800 Mg Tab) 800 mg PO Q8H PRN PRN Reason: mild pain or fever Last Admin: 02/10/21 07:21 Dose: 800 mg Documented by: Admin: 02/09/21 23:23 Dose: 800 mg Documented by: CLAUDIO Methylergonovine Maleate (Methylergonovine 0.2 Mg/1 Ml Amp) 0.2 mg IM ONETIME PRN PRN Reason: Excessive Vaginal Bleeding Misoprostol (Misoprostol 200 Mcg Tab) 1,000 mcg RECTAL ONETIME PRN PRN Reason: excessive bleeding Ondansetron HCl (Ondansetron 4 Mg/2 Ml Sdv) 4 mg IVPUSH Q4H PRN PRN Reason: Nausea/Vomiting Oxycodone/Acetaminophen (Acetaminophen/Oxycodone 325-5 Mg Tab) 1 tab PO Q4H PRN PRN Reason: Pain (severe 7-10) Oxycodone/Acetaminophen (Acetaminophen/Oxycodone 325-5 Mg Tab) 2 tab PO Q4H PRN PRN Reason: Pain (severe 7-10) Oxytocin (Oxytocin 10 Units/1 Ml Sdv) 10 unit IM ASDIRECTED PRN PRN Reason: Excessive Vaginal Bleeding Sodium Chloride (Sodium Chloride 0.9% 10 Ml Syringe) 10 ml FLUSH ASDIRECTED PRN PRN Reason: Keep Vein Open Sodium Chloride (Sodium Chloride 0.9% 2.5 Ml Syringe) 2.5 ml FLUSH ASDIRECTED PRN PRN Reason: Keep Vein Open Sodium Chloride (Sodium Chloride 0.9% 10 Ml Sdv) 10 ml IV ASDIRECTED PRN PRN Reason: IV Use - Assessment Assessment (Free Text/Narrative):: Post section and dry patient ambulatory on regular diet today is postoperative day #2 she is voiding without any problem seeing S - Plan Plan (Free Text/Narrative):: Center home with a post section instruction and prescription of [place] 5/325 for postoperative pain and the patient to come to the office for follow-up exam
== END 2021-02-10 09:45 | disposition home or self-care (01) | DRG 788 ==
LOC: MW.OBCHECK 09:50 → MW.OB 13:51 → OBSVTOIN 15:47 → MW.OB 15:47
PROVIDERS: ADMIT Obstetrics & Gynecology; ATTEND Obstetrics & Gynecology
PROC: 10D00Z1 Extraction of Products of Conception, Low, Open Approach (ICD-10-PCS; principal; 2021-02-08)
DX: O60.14X0 Preterm labor third trimester with preterm delivery third trimester, not applicable or unspecified (principal); O32.1XX0 Maternal care for breech presentation, not applicable or unspecified; O34.211 Maternal care for low transverse scar from previous cesarean delivery; Z3A.35 35 weeks gestation of pregnancy; Z37.0 Single live birth
CPT/HCPCS: 36415; 59025; 81003; 85014; 85018; 85027; 86592; 86850; 86900; 86901; 87480; 87510; 87653; 87660; A9270-GY; J1200; J1885; J2270; J2370; J2405; J2590; J3010; J7120

== ENCOUNTER 2023-08-10 05:00 | Inpatient (IN) | payer OTHER ==
[2023-08-10] MEDS ORDERED: Sodium Chloride 0.9% 20 ML SDV IV PRN (05:13)
[2023-08-10] MEDS ORDERED: Sodium Chloride 0.9% 2.5 ML Syringe FLUSH PRN (05:13)
[2023-08-10] MEDS ORDERED: Citric Acid/Sodium Citrate Solution 30 ML Cup PO ONE (05:13)
[2023-08-10] MEDS ORDERED: Sodium Chloride 0.9% 10 ML Syringe FLUSH PRN (05:13)
[2023-08-10] MEDS ORDERED: Oxytocin/0.9 % Sodium Chloride 30 UNIT/500 ML BAG IV SCH ×2 (05:15→08:15)
[2023-08-10] MEDS: Lactated Ringers 1,000 ML IV SCH ×2 (05:25→10:38)
[2023-08-10 05:43] LABS: HEMATOCRIT 31.9 % (37.0-47.0); MEAN CORPUSCULAR HEMOGLOBIN 30.9 pg (28.0-32.0); MEAN CORPUSCULAR HGB CONC 34.5 g/dL (32.0-36.0); MEAN CORPUSCULAR VOLUME 89.6 fL (83.0-99.0); MEAN PLATELET VOLUME 10.5 fL (9.4-12.3); PLATELET COUNT,PLT 179 K/uL (150-400); RED BLOOD CELL COUNT 3.56 M/uL (4.10-5.30); WHITE BLOOD CELL COUNT,WBC 11.46 K/uL (3.9-11.3)
[2023-08-10] MEDS ORDERED: ePHEDrine 50 MG/ML SDV IVPUSH PRN (06:50)
[2023-08-10] MEDS ORDERED: Morphine 2 MG/ML SYRINGE IVPUSH PRN (06:50)
[2023-08-10] MEDS ORDERED: Acetaminophen/oxyCODONE 325-5 MG Tab PO PRN ×3 (06:50→08:15)
[2023-08-10] MEDS ORDERED: droPERidol 5 MG/2 ML SDV IVPUSH PRN (06:50)
[2023-08-10] MEDS ORDERED: Metoclopramide 10 MG/2 ML SDV IVPUSH PRN (06:50)
[2023-08-10] MEDS ORDERED: Ondansetron 4 MG/2 ML SDV IVPUSH PRN ×3 (06:50→08:15)
[2023-08-10] MEDS ORDERED: Albuterol 0.083% 2.5 MG/3 ML Neb Soln NEB PRN (06:50)
[2023-08-10] MEDS ORDERED: fentaNYL 100 MCG/2 ML SDV IVPUSH PRN (06:50)
[2023-08-10] MEDS ORDERED: fentaNYL 50 MCG/ML SDV IVPUSH PRN (06:50)
[2023-08-10] MEDS ORDERED: Naloxone 0.4 MG/ML SDV IVPUSH PRN (06:50)
[2023-08-10] MEDS ORDERED: HYDROmorphone 1 MG/ML Syringe IVPUSH PRN (06:50)
[2023-08-10] MEDS ORDERED: Ketorolac 30 MG/ML SDV ONE (07:03)
[2023-08-10] MEDS ORDERED: Ondansetron 4 MG/2 ML SDV ONE (07:03)
[2023-08-10] MEDS ORDERED: fentaNYL 100 MCG/2 ML SDV ONE (07:03)
[2023-08-10] MEDS ORDERED: Oxytocin 10 Units/1 ML SDV ONE (07:03)
[2023-08-10] MEDS ORDERED: ceFAZolin 1 GM Vial ONE (07:03)
[2023-08-10] MEDS ORDERED: Morphine PF 10 MG/10 ML SDV ONE (07:03)
[2023-08-10] MEDS ORDERED: EPINEPHrine 1 MG/1 ML Amp ONE (07:03)
[2023-08-10] MEDS ORDERED: Ropivacaine 0.5% 5 MG/ML 30 ML SDV ONE (07:03)
[2023-08-10] MEDS ORDERED: Bupivacaine 0.25% 30 ML SDV ONE (07:03)
[2023-08-10] MEDS ORDERED: Phenylephrine 1% 10 MG/ML SDV ONE (07:05)
[2023-08-10] MEDS ORDERED: Lanolin 100% Cream 7 GM Tube TOP PRN (08:15)
[2023-08-10] MEDS ORDERED: Bisacodyl 10 MG Supp RECTAL PRN (08:15)
[2023-08-10] MEDS ORDERED: Oxytocin 10 Units/1 ML SDV IM PRN (08:15)
[2023-08-10] MEDS ORDERED: Methylergonovine 0.2 MG/1 ML Amp IM PRN (08:15)
[2023-08-10] MEDS ORDERED: Ketorolac 30 MG/ML SDV IVPUSH SCH (08:15)
[2023-08-10] MEDS ORDERED: Misoprostol 200 MCG Tab RECTAL PRN (08:15)
[2023-08-10] MEDS: Acetaminophen 1,000 MG in Premix Bag 1 BAG IV SCH (10:43)
[2023-08-10] MEDS: Docusate Sodium 100 MG Cap PO SCH (11:08)
[2023-08-10] MEDS: diphenhydrAMINE 50 MG/ML SDV IVPUSH PRN ×2 (11:48→14:25)
[2023-08-10] MEDS: Ketorolac 30 MG/ML SDV IVPUSH SCH (14:29)
[2023-08-11 05:54] LABS: HEMOGLOBIN 10.1 g/dL (12.0-16.0)
[2023-08-11] MEDS: Acetaminophen 500 MG Tab PO PRN (17:32)
[2023-08-11] MEDS: Ibuprofen 800 MG Tab PO PRN (21:28)
[2023-08-12 09:03] VITALS: BP 110/77; PULSE 79
== END 2023-08-12 11:45 | disposition home or self-care (01) | DRG 788 ==
LOC: MW.OB 05:00
PROVIDERS: ADMIT Obstetrics & Gynecology Obstetrics; ATTEND Obstetrics & Gynecology Obstetrics
PROC: 10D00Z1 Extraction of Products of Conception, Low, Open Approach (ICD-10-PCS; principal; 2023-08-10 08:00)
DX: O34.211 Maternal care for low transverse scar from previous cesarean delivery (principal); Z3A.39 39 weeks gestation of pregnancy; Z90.49 Acquired absence of other specified parts of digestive tract; Z37.0 Single live birth
CPT/HCPCS: 36415; 59025; 85014; 85018; 85027; 86592; 86850; 86900; 86901; A9270-GY; J0131; J0171; J0665; J0690; J1100; J1200; J1885; J2274; J2371; J2405; J2590; J2795; J3010; J7120